=== PATIENT | male | born 1970 | race Caucasian/White ===

== ENCOUNTER 2016-11-14 05:02 | Emergency (ER) | payer OTHER ==
[~2016-11-14] VITALS: Ht 177.8 cm; Wt 68.0 kg
[2016-11-14 05:37] VITALS: BP 109/73
--- NOTE | 2016-11-14 05:50 | ED GI/GU/ABDOMINAL COMPLAINT ---
History of Present Illness General Chief Complaint: Abdominal Pain/Flank Pain Stated Complaint: LT SIDE PAIN ? 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 yes Duration: 2 MONTHS Timing: recent history Location: left flank Radiation: no radiation Prior Abdominal Problems: similar symptoms No Modifying Factors: none Associated Symptoms: FLANK PAIN HPI: 46 year old male with h/o kidney stone in past presents to the ER with chief complaint of left flank pain since beginning of September. Reports difficulty with urinating. No fever or chills. Seen at [facility] in beginning of September but hasn't passed it since. Past History Travel History Traveled to [facility] past 21 day No Medical History Any Pertinent Medical History? see below for history Neurological: NONE EENT: NONE Cardiovascular: NONE Respiratory: NONE Gastrointestinal: NONE Hepatic: NONE Renal: nephrolithiasis Musculoskeletal: NONE Psychiatric: NONE Endocrine: NONE Blood Disorders: NONE Cancer(s): NONE Surgical History Surgical History: non-contributory Psychosocial History What is your primary language Kuwaiti Tobacco Use: Current Daily Use Daily Tobacco Use Amount/Type: => 5 Cigarettes daily Family History Hx Contributory? No Review of Systems Review of Systems Constitutional: Denies: chills, fever. EENTM: Reports: no symptoms. Respiratory: Denies: cough, sputum production. Cardiovascular: Denies: chest pain. GI: Reports: abdominal pain. Denies: nausea, vomiting. Genitourinary: Denies: discharge, dysuria, frequency. Musculoskeletal: Reports: back pain. Skin: Reports: no symptoms. Neurological/Psychological: Reports: no symptoms. Hematologic/Endocrine: Denies: bruising, bleeding, polyuria, polydipsia. Immunologic/Allergic: Denies: splenectomy. All Other Systems: Reviewed and Negative Physical Exam Physical Exam General Appearance: well developed/nourished, no apparent distress, alert, awake , anxious, mild distress, thin Head: atraumatic, normal appearance Eyes: Bilateral: normal appearance. Ears, Nose, Throat, Mouth: hearing grossly normal, moist mucous membrane Neck: normal inspection, supple, full range of motion Respiratory: normal breath sounds, chest non-tender, no respiratory distress Cardiovascular: regular rate/rhythm, normal peripheral pulses Peripheral Pulses: 2+ radial (R), 2+ radial (L) Gastrointestinal: normal bowel sounds, soft, non-tender Back: CVA tenderness (L) Extremities: normal range of motion Neurologic/Psych: no motor/sensory deficits, awake, alert, oriented x 3 Core Measures ACS in differential dx? No Severe Sepsis Present: No Septic Shock Present: No Progress Differential Diagnosis: pyelonephritis, ureterolithiasis, UTI/pyelo Plan of Care: Orders Procedure Date/time Status URINE DRUGS OF ABUSE 11/15 551 Active URINALYSIS 11/15 551 Active COMPREHENSIVE METABOLIC PANEL 11/15 551 Active CBC WITHOUT DIFFERENTIAL 11/15 551 Active LABS, UA, UTOX ORDERED. 6:15 AM PATIENT ELOPED FROM ED WITH ANOTHER PATIENT SEEN PREVIOUSLY. (ZECHARIAH CASANOVA,DIAMOND) Initial ED EKG: none Departure Departure Time of Disposition: 614 Disposition: ER WALKOUT Condition: Stable Clinical Impression Primary Impression: Flank pain Referrals: PATIENT HAS NO PRIMARY CARE DR (PCP/Family) Departure Forms: Customer Survey General Discharge Information Prescriptions: Current Visit Scripts No Known Home Medications
== END 2016-11-14 06:16 | disposition admitted as inpatient to this hospital (09) ==
LOC: ERH 05:02
DX: R10.9 Unspecified abdominal pain (principal)
CPT/HCPCS: 80307